=== PATIENT | male | born 1980 | race Hispanic/Latino ===

== ENCOUNTER 2017-09-13 15:18 | Emergency (ER) | payer MEDICAID, OTHER ==
[2017-09-13 15:37] LABS: APPEARANCE,URINE Clear (CLEAR); BILIRUBIN,URINE Negative (NEGATIVE); COLOR,URINE Dark Yellow (YELLOW); GLUCOSE, URINE (UA) Negative (NEGATIVE); KETONES,URINE Trace mg/dL (NEGATIVE); LEUKOCYTE ESTERASE ,URINE Small (NEGATIVE); NITRATE,URINE Negative (NEGATIVE); OCCULT BLOOD,URINE Negative (NEGATIVE); PH,URINE 5.5 (5.0-8.0); PROTEIN,URINE Negative (NEGATIVE)
[2017-09-13 15:48] LABS: BACTERIA,URINE Rare /HPF (None Seen); RBC,URINE None Seen /HPF (0-1); SQUAMOUS EPITHELIAL CELL,UR 0-2 /LPF (0-2); WBC,URINE 0-1 /HPF (0-1)
[2017-09-13 15:49] LABS: MUCUS,URINE Moderate LPF (None Seen)
[2017-09-13] MEDS ORDERED: SODIUM CHLORIDE 0.9% 1000ML 1,000 ML IV ONE (15:58)
[2017-09-13] MEDS ORDERED: KETOROLAC TROMETHAMINE 30MG/ML ONE (15:58)
[2017-09-13 16:16] LABS: BASOPHILS % (AUTO) 1.3 % (0.0-5.0); EOSINOPHILS % (AUTO) 3.2 % (0.0-8.0); HEMATOCRIT 43.3 % (42-54); LYMPHOCYTES % (AUTO) 16.4 % (21.0-51.0); MEAN CORPUSCULAR HEMOGLOBIN 27.5 pg (27.0-33.0); MEAN CORPUSCULAR HGB CONC 33.4 g/dL (32.0-36.0); MEAN CORPUSCULAR VOLUME 82.4 fL (79-99); MONOCYTES % (AUTO) 7.3 % (3.0-13.0); NEUTROPHILS % (AUTO) 71.8 % (40.0-77.0); PLATELET COUNT (AUTO) 269 K/uL (130-400); RED BLOOD CELL COUNT(AUTO) 5.25 MIL/uL (4.50-6.20); RED CELL DISTRIBUTION WIDTH 14.4 % (11.0-15.5); WHITE BLOOD COUNT (AUTO) 10.5 K/uL (4.8-10.8)
[2017-09-13 16:21] LABS: CREATININE 1.1 mg/dL (0.5-1.5); POTASSIUM 3.8 mmol/L (3.5-5.1)
[2017-09-13 16:26] LABS: ALBUMIN 3.4 g/dL (3.5-5.0)
[2017-09-13] MEDS ORDERED: IOPAMIDOL-370 75 ML VIAL IV ONE (16:58)
[2017-09-13] MEDS ORDERED: ACETAMINOPHEN-CODEINE ELIXIR 5 ML UDCUP ONE (18:37)
== END 2017-09-13 19:12 | disposition home or self-care (01) ==
LOC: EDH 15:18
DX: K52.9 Noninfective gastroenteritis and colitis, unspecified (principal)
CPT/HCPCS: 36415; 74177; 80053; 81001; 85025; 96361; 96374; 99285; J1885; J7030; Q9967

== ENCOUNTER 2017-09-15 12:01 | Inpatient (IN) | payer MEDICAID ==
[~2017-09-15] VITALS: Ht 195.6 cm; Wt 205.6 kg
[2017-09-15] MEDS ORDERED: DICYCLOMINE HCL 10 MG/ML 2ML AMP IM ONE (12:23)
[2017-09-15] MEDS ORDERED: ONDANSETRON HCL 4 MG/2 ML VIAL ONE (12:23)
[2017-09-15] MEDS ORDERED: SODIUM CHLORIDE 0.9% 1000ML 1,000 ML IV ONE ×2 (12:23→16:13)
[2017-09-15 12:26] LABS: BASOPHILS % (AUTO) 1.2 % (0.0-5.0); EOSINOPHILS % (AUTO) 2.7 % (0.0-8.0); LYMPHOCYTES % (AUTO) 14.8 % (21.0-51.0); MEAN CORPUSCULAR HEMOGLOBIN 27.7 pg (27.0-33.0); MEAN CORPUSCULAR HGB CONC 33.7 g/dL (32.0-36.0); MEAN CORPUSCULAR VOLUME 82.1 fL (79-99); MONOCYTES % (AUTO) 7.8 % (3.0-13.0); NEUTROPHILS % (AUTO) 73.5 % (40.0-77.0); PLATELET COUNT (AUTO) 261 K/uL (130-400); RED CELL DISTRIBUTION WIDTH 14.6 % (11.0-15.5); WHITE BLOOD COUNT (AUTO) 11.9 K/uL (4.8-10.8)
[2017-09-15 12:43] LABS: ALBUMIN 3.1 g/dL (3.5-5.0); BILIRUBIN,TOTAL 0.8 mg/dL (0.2-1.0); TOTAL PROTEIN, SERUM 7.6 g/dL (6.0-8.3)
[2017-09-15 12:54] LABS: APPEARANCE,URINE CLEAR (CLEAR); BILIRUBIN,URINE NEGATIVE (NEGATIVE); COLOR,URINE YELLOW (YELLOW); GLUCOSE, URINE (UA) NEGATIVE (NEGATIVE); KETONES,URINE NEGATIVE (NEGATIVE); LEUKOCYTE ESTERASE ,URINE NEGATIVE (NEGATIVE); NITRATE,URINE NEGATIVE (NEGATIVE); OCCULT BLOOD,URINE NEGATIVE (NEGATIVE); PH,URINE 5.5 (5.0-8.0); PROTEIN,URINE NEGATIVE (NEGATIVE); UROBILINOGEN,URINE 0.2 mg/dL (0.2-1.0)
[2017-09-15 13:01] LABS: AMPHET/METH SCREEN,URINE NEGATIVE (NEGATIVE); BARBITURATE SCREEN, URINE NEGATIVE (NEGATIVE); BENZODIAZEPINES SCREEN,URINE NEGATIVE (NEGATIVE); CANNABINOID SCREEN,URINE POSITIVE (NEGATIVE); COCAINE SCREEN,URINE NEGATIVE (NEGATIVE); OPIATE SCREEN,URINE NEGATIVE (NEGATIVE); PHENCYCLIDINE SCREEN,URINE NEGATIVE (NEGATIVE)
[2017-09-15] MEDS ORDERED: MORPHINE SULFATE 4 MG/1ML SYG ONE ×3 (13:18→22:38)
[2017-09-15] MEDS ORDERED: IOPAMIDOL-370 75 ML VIAL IV ONE (13:38)
[2017-09-15] MEDS: SODIUM CHLORIDE 0.9% 1000ML 1,000 ML IV SCH (15:04)
[2017-09-15] MEDS ORDERED: LIDOCAINE HCL-MPF 1% 2ML VIAL IVP PRN (15:15)
[2017-09-15] MEDS: LEVOFLOXACIN 500 MG/D5W 100 ML 100 ML IV SCH (15:15)
[2017-09-15] MEDS ORDERED: POTASSIUM CHLORIDE 20 MEQ ERTAB PO PRN (15:15)
[2017-09-15] MEDS ORDERED: ONDANSETRON HCL 4 MG/2 ML VIAL IV PRN (15:15)
[2017-09-15] MEDS ORDERED: POTASSIUM CHLORIDE 10% ELIXIR 20 MEQ/15 ML UDCUP PO PRN (15:15)
[2017-09-15] MEDS ORDERED: POTASSIUM CHLORIDE 20MEQ/100ML 100 ML IV PRN (15:15)
[2017-09-15] MEDS ORDERED: KETOROLAC TROMETHAMINE 15MG/ML IV PRN (15:15)
[2017-09-15] MEDS ORDERED: MAG HYDROX/AL HYDROX/SIMETH ES 30 ML SUSP UDCUP PO PRN (15:15)
[2017-09-15] MEDS ORDERED: LACTULOSE 20 GM/30 ML UDCUP PO PRN (15:15)
[2017-09-15] MEDS ORDERED: MORPHINE SULFATE 2 MG/ML 1ML SYG IV PRN (15:15)
[2017-09-15] MEDS ORDERED: NITROGLYCERIN 0.4 MG SL TAB SL PRN (15:15)
[2017-09-15] MEDS ORDERED: GUAIFENESIN-DM 200/20 MG 10 ML PO PRN (15:15)
[2017-09-15] MEDS ORDERED: ACETAMINOPHEN-CODEINE 300/30MG TAB PO PRN ×2 (15:15)
[2017-09-15] MEDS ORDERED: HYDRALAZINE HCL 20 MG/ML VIAL IV PRN (15:15)
[2017-09-15] MEDS ORDERED: ACETAMINOPHEN 325 MG TAB PO PRN ×2 (15:15)
[2017-09-15] MEDS ORDERED: LEVOFLOXACIN 500 MG/D5W 100 ML 100 ML ONE (16:13)
[2017-09-15] MEDS ORDERED: KETOROLAC TROMETHAMINE 15MG/ML ONE (16:13)
[2017-09-15] MEDS ORDERED: METRONIDAZOLE 500MG/100ML BAG 100 ML ONE (17:16)
[2017-09-15 19:45] VITALS: BP 126/76
[2017-09-15 23:00] VITALS: BP 129/69
[2017-09-16] MEDS: FAMOTIDINE/PF 20 MG/2 ML VIAL IV SCH ×3 (00:05→20:02)
[2017-09-16] MEDS: METRONIDAZOLE 500MG/100ML BAG 100 ML IV SCH ×4 (00:05→23:05)
[2017-09-16] MEDS: SODIUM CHLORIDE 0.9% 1000ML 1,000 ML IV SCH ×3 (01:51→20:03)
[2017-09-16 03:00] VITALS: BP 131/75
[2017-09-16] MEDS: MORPHINE SULFATE 4 MG/1ML SYG IV PRN ×4 (06:03→20:03)
[2017-09-16 06:12] LABS: HEMATOCRIT 39.2 % (42-54); MEAN CORPUSCULAR HGB CONC 33.7 g/dL (32.0-36.0); MEAN CORPUSCULAR VOLUME 83.1 fL (79-99); NUCLEATED RED BLOOD CELLS 0.1 % (0.0-0.19); PLATELET COUNT (AUTO) 247 K/uL (130-400); RED BLOOD CELL COUNT(AUTO) 4.72 MIL/uL (4.50-6.20); RED CELL DISTRIBUTION WIDTH 14.1 % (11.0-15.5); WHITE BLOOD COUNT (AUTO) 10.4 K/uL (4.8-10.8)
[2017-09-16 08:36] VITALS: BP 126/77
[2017-09-16] MEDS: ENOXAPARIN SODIUM 40 MG/0.4 ML SYRINGE SQ SCH (09:42)
[2017-09-16 11:00] VITALS: BP 134/75
[2017-09-16 12:41] LABS: CREATINE KINASE MB < 0.5 ng/mL (0.5-3.6); CREATINE KINASE, TOTAL 55 U/L (21-232); MYOGLOBIN 23 ng/mL (10-92); TROPONIN I < 0.04 ng/mL (0.00-0.06)
[2017-09-16] MEDS: LEVOFLOXACIN 500 MG/D5W 100 ML 100 ML IV SCH (15:57)
[2017-09-16 16:00] VITALS: BP 119/59
[2017-09-16] MEDS ORDERED: MORPHINE SULFATE 4 MG/1ML SYG IV PRN (16:15)
[2017-09-16 20:00] VITALS: BP 121/74
[2017-09-17] VITALS (7 sets, daily range): BP systolic 103–127; BP diastolic 54–76
[2017-09-17] MEDS: MORPHINE SULFATE 4 MG/1ML SYG IV PRN ×4 (03:02→14:05)
[2017-09-17 04:25] LABS: HEMATOCRIT 41.4 % (42-54); MEAN CORPUSCULAR HEMOGLOBIN 27.5 pg (27.0-33.0); MEAN CORPUSCULAR HGB CONC 33.6 g/dL (32.0-36.0); PLATELET COUNT (AUTO) 323 K/uL (130-400); RED BLOOD CELL COUNT(AUTO) 5.05 MIL/uL (4.50-6.20); RED CELL DISTRIBUTION WIDTH 13.9 % (11.0-15.5); WHITE BLOOD COUNT (AUTO) 12.7 K/uL (4.8-10.8)
[2017-09-17] MEDS: FLU VACC QS2017-18 36MOS UP/PF 60 MCG/0.5 ML ML IM SCH (06:15)
[2017-09-17] MEDS: METRONIDAZOLE 500MG/100ML BAG 100 ML IV SCH ×3 (07:10→23:23)
[2017-09-17] MEDS: FAMOTIDINE/PF 20 MG/2 ML VIAL IV SCH ×2 (09:21→20:46)
[2017-09-17] MEDS: ENOXAPARIN SODIUM 40 MG/0.4 ML SYRINGE SQ SCH (09:21)
[2017-09-17] MEDS ORDERED: DIATR MEGLU/DIATRIZOATE SODIUM 30 ML BOTTLE PO ONE (09:30)
[2017-09-17] MEDS ORDERED: IOPAMIDOL-370 75 ML VIAL IV ONE (12:10)
[2017-09-17] MEDS: LEVOFLOXACIN 500 MG/D5W 100 ML 100 ML IV SCH (16:12)
[2017-09-17] MEDS: SODIUM CHLORIDE 0.9% 1000ML 1,000 ML IV SCH ×2 (16:12→18:15)
[2017-09-18 03:05] VITALS: BP 120/71
[2017-09-18 03:52] LABS: HEMATOCRIT 38.6 % (42-54); MEAN CORPUSCULAR HEMOGLOBIN 27.6 pg (27.0-33.0); MEAN CORPUSCULAR HGB CONC 33.6 g/dL (32.0-36.0); MEAN CORPUSCULAR VOLUME 82.2 fL (79-99); PLATELET COUNT (AUTO) 294 K/uL (130-400); WHITE BLOOD COUNT (AUTO) 8.9 K/uL (4.8-10.8)
[2017-09-18 03:58] LABS: CREATININE 0.9 mg/dL (0.5-1.5); POTASSIUM 3.6 mmol/L (3.5-5.1)
[2017-09-18 04:34] LABS: BAND NEUTROPHILS % (MANUAL) 3 % (0-2); EOSINOPHILS % (MANUAL) 1 % (1-6); LYMPHOCYTES % (MANUAL) 10 % (22-44); MAN.DIFF COMMENT-IMPRESSION MANUAL DIFFERENTIAL; MONOCYTES % (MANUAL) 8 % (2-9); SEGMENTED NEUTROPHILS % 78 % (40-70)
[2017-09-18 04:35] LABS: PLATELET MORPHOLOGY COMMENT ADEQUATE
[2017-09-18] MEDS: FLU VACC QS2017-18 36MOS UP/PF 60 MCG/0.5 ML ML IM SCH (06:15)
[2017-09-18] MEDS: METRONIDAZOLE 500MG/100ML BAG 100 ML IV SCH ×3 (06:31→23:07)
[2017-09-18 07:00] VITALS: BP 106/56
[2017-09-18] MEDS: FAMOTIDINE/PF 20 MG/2 ML VIAL IV SCH ×2 (09:32→20:45)
[2017-09-18] MEDS: ENOXAPARIN SODIUM 40 MG/0.4 ML SYRINGE SQ SCH (09:32)
[2017-09-18 12:00] VITALS: BP 106/56
[2017-09-18 14:39] LABS: CREATINE KINASE MB < 0.5 ng/mL (0.5-3.6); CREATINE KINASE, TOTAL 86 U/L (21-232); MYOGLOBIN 35 ng/mL (10-92); TROPONIN I < 0.04 ng/mL (0.00-0.06)
[2017-09-18] MEDS ORDERED: 1/2 NORMAL SALINE 1,000 ML IV ONE (15:15)
[2017-09-18] MEDS ORDERED: IOPAMIDOL-370 75 ML VIAL IV ONE (15:34)
[2017-09-18 16:00] VITALS: BP 123/70
[2017-09-18] MEDS ORDERED: MORPHINE SULFATE 4 MG/1ML SYG IV ONE (16:45)
[2017-09-18] MEDS: LEVOFLOXACIN 500 MG/D5W 100 ML 100 ML IV SCH (18:25)
[2017-09-18 19:10] VITALS: BP 111/61
[2017-09-18 20:24] LABS: CREATINE KINASE MB < 0.5 ng/mL (0.5-3.6); CREATINE KINASE, TOTAL 91 U/L (21-232); MYOGLOBIN 45 ng/mL (10-92); TROPONIN I < 0.04 ng/mL (0.00-0.06)
[2017-09-18] MEDS ORDERED: METOPROLOL TARTRATE 25 MG TAB PO SCH (21:00)
[2017-09-18 23:13] VITALS: BP 127/72
[2017-09-19 02:41] LABS: CREATINE KINASE MB < 0.5 ng/mL (0.5-3.6); CREATINE KINASE, TOTAL 97 U/L (21-232); MYOGLOBIN 36 ng/mL (10-92); TROPONIN I < 0.04 ng/mL (0.00-0.06)
[2017-09-19 03:25] VITALS: BP 122/65
[2017-09-19] MEDS: FLU VACC QS2017-18 36MOS UP/PF 60 MCG/0.5 ML ML IM SCH ×2 (06:15→09:51)
[2017-09-19] MEDS: METRONIDAZOLE 500MG/100ML BAG 100 ML IV SCH ×2 (06:23→16:32)
[2017-09-19 08:00] VITALS: BP 117/78
[2017-09-19 08:37] LABS: CREATINE KINASE MB < 0.5 ng/mL (0.5-3.6); CREATINE KINASE, TOTAL 108 U/L (21-232); MYOGLOBIN 58 ng/mL (10-92); TROPONIN I < 0.04 ng/mL (0.00-0.06)
[2017-09-19] MEDS ORDERED: ASPIRIN 325MG EC TAB 325 MG TABLET.DR PO SCH (09:00)
[2017-09-19] MEDS: FAMOTIDINE/PF 20 MG/2 ML VIAL IV SCH ×2 (09:47→20:20)
[2017-09-19] MEDS: ENOXAPARIN SODIUM 40 MG/0.4 ML SYRINGE SQ SCH (09:48)
[2017-09-19 12:00] VITALS: BP 140/68
[2017-09-19 14:11] LABS: CREATINE KINASE MB < 0.5 ng/mL (0.5-3.6); CREATINE KINASE, TOTAL 127 U/L (21-232); MYOGLOBIN 59 ng/mL (10-92); TROPONIN I < 0.04 ng/mL (0.00-0.06)
[2017-09-19 16:00] VITALS: BP 120/75
[2017-09-19] MEDS: LEVOFLOXACIN 500 MG/D5W 100 ML 100 ML IV SCH (18:11)
[2017-09-19 19:18] VITALS: BP 105/61
[2017-09-19 23:23] VITALS: BP 124/73
[2017-09-20] MEDS: METRONIDAZOLE 500MG/100ML BAG 100 ML IV SCH ×2 (00:11→07:12)
[2017-09-20 03:26] VITALS: BP 108/62
[2017-09-20 04:23] LABS: CREATININE 0.9 mg/dL (0.5-1.5); POTASSIUM 3.9 mmol/L (3.5-5.1)
[2017-09-20] MEDS: FLU VACC QS2017-18 36MOS UP/PF 60 MCG/0.5 ML ML IM SCH (05:59)
[2017-09-20 08:00] VITALS: BP 114/66
[2017-09-20] MEDS ORDERED: LEVO500T2 PO (08:00)
[2017-09-20] MEDS ORDERED: METR500T PO (08:00)
[2017-09-20] MEDS: FAMOTIDINE/PF 20 MG/2 ML VIAL IV SCH (08:35)
[2017-09-20] MEDS: ENOXAPARIN SODIUM 40 MG/0.4 ML SYRINGE SQ SCH (08:37)
== END 2017-09-20 09:40 | disposition home or self-care (01) | DRG 244 ==
LOC: EDH 12:01 → EDHIP 12:02 → 3BH 19:23
PROVIDERS: ADMIT Internal Medicine; ATTEND Internal Medicine
PROC: 3E0234Z Introduction of Serum, Toxoid and Vaccine into Muscle, Percutaneous Approach (ICD-10-PCS; principal; 2017-09-16)
DX: K57.32 Diverticulitis of large intestine without perforation or abscess without bleeding (principal); E66.01 Morbid (severe) obesity due to excess calories; Z68.43 Body mass index [BMI] 50.0-59.9, adult; F12.90 Cannabis use, unspecified, uncomplicated; K59.00 Constipation, unspecified; K52.9 Noninfective gastroenteritis and colitis, unspecified; Z83.3 Family history of diabetes mellitus; Z90.49 Acquired absence of other specified parts of digestive tract; Z23 Encounter for immunization
CPT/HCPCS: 36415; 71275; 74177; 74178; 80048; 80053; 80305; 81001; 81003; 82150; 82550; 82553; 83690; 83874; 84484; 85025; 85027; 85378; 93005; 96361; 96374; G0008; J0500; J1650; J1885; J1956; J2270; J2405; J3490; J7030; Q2038; Q9963; Q9967

== ENCOUNTER 2018-04-25 17:35 | Emergency (ER) | payer MEDICAID ==
[~2018-04-25 17:35] MED LIST: LEVO500T2 PO; METR500T PO
[2018-04-25] MEDS ORDERED: ONDANSETRON HCL 4 MG/2 ML VIAL ONE (19:22)
[2018-04-25] MEDS ORDERED: MORPHINE SULFATE 4 MG/1ML SYG ONE ×2 (19:22→20:28)
[2018-04-25] MEDS ORDERED: SODIUM CHLORIDE 0.9% 1000ML 1,000 ML IV ONE ×2 (19:22→20:28)
[2018-04-25 19:25] LABS: BASOPHILS % (AUTO) 0.4 % (0.0-5.0); EOSINOPHILS % (AUTO) 1.6 % (0.0-8.0); HEMATOCRIT 46.2 % (42-54); LYMPHOCYTES % (AUTO) 4.1 % (21.0-51.0); MEAN CORPUSCULAR HEMOGLOBIN 28.2 pg (27.0-33.0); MEAN CORPUSCULAR HGB CONC 33.7 g/dL (32.0-36.0); MEAN CORPUSCULAR VOLUME 83.8 fL (79-99); MONOCYTES % (AUTO) 5.1 % (3.0-13.0); NEUTROPHILS % (AUTO) 88.8 % (40.0-77.0); NUCLEATED RED BLOOD CELLS 0.1 % (0.0-0.19); PLATELET COUNT (AUTO) 262 K/uL (130-400); RED BLOOD CELL COUNT(AUTO) 5.51 MIL/uL (4.50-6.20)
[2018-04-25 19:42] LABS: CREATININE 1.2 mg/dL (0.5-1.5); POTASSIUM 3.7 mmol/L (3.5-5.1)
[2018-04-25 19:50] LABS: ALBUMIN 3.7 g/dL (3.5-5.0); BILIRUBIN,TOTAL 1.4 mg/dL (0.2-1.0); TOTAL PROTEIN, SERUM 8.4 g/dL (6.0-8.3)
[2018-04-25] MEDS ORDERED: LEVOFLOXACIN 750 MG/D5W 150 ML 150 ML ONE (19:58)
[2018-04-25 20:04] LABS: APPEARANCE,URINE Clear (CLEAR); BILIRUBIN,URINE Negative (NEGATIVE); COLOR,URINE Yellow (YELLOW); GLUCOSE, URINE (UA) Negative (NEGATIVE); KETONES,URINE Negative (NEGATIVE); LEUKOCYTE ESTERASE ,URINE Trace (NEGATIVE); NITRATE,URINE Negative (NEGATIVE); OCCULT BLOOD,URINE Negative (NEGATIVE); PH,URINE 6.5 (5.0-8.0); PROTEIN,URINE Negative (NEGATIVE); UROBILINOGEN,URINE 0.2 mg/dL (0.2-1.0)
[2018-04-25 20:14] LABS: BACTERIA,URINE Rare /HPF (None Seen); RBC,URINE 0-1 /HPF (0-1); SQUAMOUS EPITHELIAL CELL,UR Few /HPF (0-2)
== END 2018-04-25 22:12 | disposition home or self-care (01) ==
LOC: EDH 17:35
DX: K52.9 Noninfective gastroenteritis and colitis, unspecified (principal); Z72.0 Tobacco use
CPT/HCPCS: 36415; 74176; 80053; 81001; 83690; 85025; 96361; 96365; 96366; 96375; 96376; 99285; J1956; J2270 ×2; J2405; J7030 ×2

== ENCOUNTER 2020-12-03 10:41 | Emergency (ER) | payer MEDICAID ==
[2020-12-03] MEDS ORDERED: KETOROLAC TROMETHAMINE 60 MG/2 ML VIAL ONE (12:17)
== END 2020-12-03 12:33 | disposition home or self-care (01) ==
LOC: EDH 10:41
DX: S86.912A Strain of unspecified muscle(s) and tendon(s) at lower leg level, left leg, initial encounter (principal); R03.0 Elevated blood-pressure reading, without diagnosis of hypertension; F12.90 Cannabis use, unspecified, uncomplicated; Z72.0 Tobacco use; W01.0XXA Fall on same level from slipping, tripping and stumbling without subsequent striking against object, initial encounter; Y93.01 Activity, walking, marching and hiking; Y92.89 Other specified places as the place of occurrence of the external cause; Y99.8 Other external cause status
CPT/HCPCS: 73562; 96372; 99283; J1885

== ENCOUNTER 2023-06-05 03:03 | Emergency (ER) | payer MEDICAID ==
[~2023-06-05] VITALS: Ht 195.6 cm; Wt 218.2 kg
[2023-06-05] MEDS ORDERED: KETOROLAC 60 MG VIAL (30MG/ML) IM ONE (04:30)
[2023-06-05 04:36] VITALS: BP 145/75; PULSE 86; RESP 18; O2SAT 98
[2023-06-05] MEDS ORDERED: IBUP-1493 PO (04:42)
== END 2023-06-05 05:36 | disposition home or self-care (01) ==
LOC: EDH 03:03
DX: M25.461 Effusion, right knee (principal); M25.561 Pain in right knee
CPT/HCPCS: 99284; 73564; 96372; 29130; J1885

== ENCOUNTER 2023-11-06 03:15 | Emergency (ER) | payer MEDICAID ==
[~2023-11-06] VITALS: Ht 195.6 cm; Wt 218.6 kg
[~2023-11-06 03:15] MED LIST changes: +IBUP-1493 PO
[2023-11-06 03:16] VITALS: BP 163/83; PULSE 72; RESP 18
[2023-11-06] MEDS ORDERED: LORA10TA7 PO (05:33)
[2023-11-06] MEDS ORDERED: AMOX500C2 PO (05:33)
[2023-11-06] MEDS ORDERED: IBUP-2070 PO (05:33)
[2023-11-06] MEDS: CIPROFLOXACIN HCL 0.2%/HYDROCORT 1% 10 ML OTIC SUSP OTIC ONE (05:45)
[2023-11-06] MEDS: DOCUSATE SODIUM 100 MG CAP PO ONE (05:45)
[2023-11-06] MEDS: AMOXICILLIN 500 MG CAPSULE PO ONE (05:45)
[2023-11-06] MEDS: ACETAMINOPHEN 500 MG TABLET PO ONE (05:46)
[2023-11-06] MEDS: DEXAMETHASONE SOD PHOSPHATE 4 MG/ML 1ML VIAL IM ONE (06:05)
[2023-11-06] MEDS: DEXAMETHASONE SOD PHOSPHATE 4 MG/ML 1ML VIAL ONE (06:22)
== END 2023-11-06 06:27 | disposition home or self-care (01) ==
LOC: EDH 03:15
DX: H61.21 Impacted cerumen, right ear (principal); H66.91 Otitis media, unspecified, right ear; Z79.899 Other long term (current) drug therapy
CPT/HCPCS: 99284; 96372; J1100